=== PATIENT | female | born 1975 | race Two or more races ===

== ENCOUNTER 2021-04-24 10:55 | Inpatient (IN) | payer OTHER ==
[2021-04-24] MEDS ORDERED: GABAP PO (16:19)
[2021-04-24] MEDS ORDERED: SIMVASTATIN PO (16:19)
[2021-04-24] MEDS ORDERED: HUM (16:20)
[2021-04-24] MEDS ORDERED: COZAAR100 MG PO (16:20)
[2021-04-24] MEDS ORDERED: LANTUS (16:21)
[2021-04-27] MEDS ORDERED: SIMVASTATIN20 MG PO (08:41)
[2021-04-27] MEDS ORDERED: GABAPENTIN800 M1 PO (08:41)
[2021-04-29] MEDS ORDERED: IBUPROFEN800 MG PO (06:39)
[2021-04-29] MEDS ORDERED: NEURONTIN600 MG PO (06:39)
[2021-04-29] MEDS ORDERED: POLY119PG PO (06:39)
[2021-04-29] MEDS ORDERED: SIMETHICONE125 M1 PO (06:39)
== END 2021-04-29 10:18 | disposition home or self-care (01) | DRG 743 ==
LOC: O/R 04-27 06:31 → OB/GYN 04-27 11:31 → SURH 04-27 13:45 → OB/GYN 04-29 10:18
PROVIDERS: ADMIT Obstetrics & Gynecology; ATTEND Obstetrics & Gynecology
PROC: 0UT90ZZ Resection of Uterus, Open Approach (ICD-10-PCS; principal; 2021-04-27 14:00)
DX: N80.0 Endometriosis of uterus (principal); D25.1 Intramural leiomyoma of uterus; N87.9 Dysplasia of cervix uteri, unspecified; N72 Inflammatory disease of cervix uteri; N93.9 Abnormal uterine and vaginal bleeding, unspecified; R10.2 Pelvic and perineal pain; I10 Essential (primary) hypertension; E78.00 Pure hypercholesterolemia, unspecified; E11.9 Type 2 diabetes mellitus without complications